=== PATIENT | male | born 1965 | race Caucasian/White ===

== ENCOUNTER 2024-09-30 14:20 | Emergency (ER) | payer BC, SELFPAY ==
[2024-09-30 14:24] VITALS: BP 165/100
[2024-09-30 14:32] LABS: Glucose - Point of Care 297 mg/dl (70-99)
[2024-09-30 15:17] VITALS: BP 162/121
[2024-09-30 15:35] LABS: Hematocrit 46.8 % (39.0-52.0); Hemoglobin 16.6 g/dL (13.0-18.0); Mean Corp Hgb Conc. 35.5 g/dL (33.0-37.0); Mean Corpuscular Volume 92.1 fL (80.0-94.0); Nucleated Red Blood Cells % 0 % (-); Platelet Count 173 10^3/uL (130-400); Red Cell Dist. Width 12.2 % (11.5-14.5)
[2024-09-30 15:54] LABS: ALT (SGPT) 41 U/L (0-50); AST (SGOT) 31 U/L (17-59); Albumin 5.1 g/dl (3.5-5.0); Alkaline Phosphatase 87 U/L (38-126); Blood Urea Nitrogen 15 mg/dl (9-20); Calcium 9.8 mg/dl (8.4-10.2); Carbon Dioxide 24 mmol/L (22-30); Chloride 102 mmol/L (98-107); Glucose 286 mg/dl (70-99); Potassium 4.1 mmol/L (3.5-5.1); Sodium 139 mmol/L (135-145); Total Protein 7.6 g/dl (6.3-8.2); eGFR > 60.00
--- NOTE | 2024-09-30 16:11 | ED.GENMED ---
History of Present Illness
General
Chief Complaint: Heart Rate Problem
Source: patient and family
Exam Limitations: clinical condition (aphasia)
Time Seen by Provider: 09/30/24 14:38
History of Present Illness
History of Present Illness:
Note:
CHIEF COMPLAINT(S)
Difficulty communicating and side pain.
HISTORY OF PRESENT ILLNESS
The patient is a 59-year-old male who presents with difficulty communicating and side pain. He initially denied having any heart issues or pain but pointed to his side when asked where he was experiencing discomfort. Upon further questioning, he
seemed to deny having any pain. He is markedly aphasic, making it very difficult to understand his intentions or symptoms. The patient has not reported any specific injury to his side. He exhibits some confusion and difficulty articulating thoughts.
ADDITIONAL HISTORY OBTAINED FROM SOURCES OTHER THAN THE PATIENT
The patients daughter was mentioned as a family member with whom he resides. There was no additional information provided directly by her during the encounter, but staff attempted to verify contact details.
PHYSICAL EXAM
- All senses are intact with no apparent deficits noted.
- Patient is awake and alert.
- Gait is normal.
- No respiratory distress observed.
- No focal neurological deficits detected.
- Heart is regular at a rate of 101 beats per minute.
- Abdomen is soft and not distended.
- Trapezius muscles are intact.
- Nursing notes reviewed and vital signs reviewed.
SOCIAL DETERMINANTS AFFECTING HEALTH
The patients communication is significantly impaired, making it challenging to understand his condition or history fully.
PROBLEM LIST
- Acute: Aphasia, side pain
- Chronic: Difficulty in effective communication
DIFFERENTIAL DIAGNOSIS
The Differential Diagnosis includes, in no particular order and is not limited to:
1. Aphasia
2. Transient ischemic attack
3. Stroke
4. Head injury
5. Anxiety or stress-related disorder
6. Seizure activity
7. Cardiovascular event
8. Neurological disorder
9. Language disorder or delay
10. Adverse reaction to medication or substance
CARE-UPDATE
09/30/24 - 15:13
Patients , Maddi, reports recurrent instances of the patient leaving home without informing anyone, frequently using a scooter despite not holding a license and traveling to various hospitals. The patient is non-compliant with medication regimen
and consistently disregards medical advice and follow-up appointments, showing stubborn behavior. He is aphasic at baseline but responds better to written communication. Plan to attempt communication through written notes and proceed to bedside
assessment.
EKG
My independent EKG interpretation is:
- Normal sinus rhythm
- Heart rate: 103 bpm
- [place]: Normal
- No acute ischemic changes
- Non-specific ST-T changes noted
- Intervals: Otherwise normal
Disposition:
SUMMARY OF ENCOUNTER
A 59-year-old male with a history of stroke was brought to the emergency department after being found wandering around the hospital. The patient exhibits significant aphasia, which is reportedly at his baseline. The patients son reported that his
father often presents this way, having previously been admitted to [facility] under similar circumstances. The patient is non-compliant with medications and dietary advice, sometimes consuming unhealthy foods like Snickers bars for dinner. He does
not follow up with primary care physicians and tends to disregard medical advice, such as not taking his medications or going to therapy for aphasia. Despite agreeing to take medications, the family indicates this agreement is often not followed
through. The patients son and express challenges in managing him at home due to his non-compliance.
PLAN
Written instructions regarding medication adherence and medical follow-up were provided to the patient. The family was informed of the importance of adherence to prescribed medications and attending follow-up therapies to manage the patients aphasia
and overall health.
PATIENT EDUCATION AND COUNSELING
The patient and his son were educated on the risks associated with medication non-compliance, poor diet choices, and irregular follow-up with healthcare providers. They were advised about the potential progression of his condition without
appropriate medical management. Instructions were handwritten for the patient to facilitate better understanding.
FOLLOW-UP INSTRUCTIONS
The patients son was given the discharge instructions along with the patient. They were advised to ensure regular follow-up with primary care providers to manage the patients health conditions more effectively.
MEDICAL DECISION MAKING
-Complexity of Data Reviewed: Chronic conditions affecting care such as history of stroke. Differential diagnosis includes aphasia, transient ischemic attack, stroke, head injury, anxiety or stress-related disorder, seizure activity, cardiovascular
event, neurological disorder, language disorder or delay, and adverse reaction to medication or substance.
-Data:
Category 1: None.
Category 2: Clinical information was obtained from the patients son, who was present at bedside.
Category 3: None.
-Risk: Care significantly affected by Social Determinants of Health due to the patients impaired communication skills and non-compliance with medical advice.
DIAGNOSIS
- Aphasia, unspecified (ICD-10: R47.01)
- Non-compliance with medical treatment (ICD-10: Z91.14)
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
Phy Exam
Physical Exam
Physical Exam:
.
Course
Orders/Labs/Results
Orders:
Orders
09/30/24
Electrocardiogram (*1) Stat
Comment: DONE EMR
09/30/24 14:32
Electrocardiogram (*1) Urgent
Reason for Study: Chest Pain
09/30/24 14:33
EKG- Treatment ONCE
09/30/24 15:26
CMP [Comprehensive Metabolic Panel] Urgent
Complete Blood Count/With Diff Urgent
Abnormal Lab Results
09/30/24 09/30/24
14:31 15:26
MCH 32.7 H pg
(27.0-31.0)
Glucose 286 H mg/dl
(70-99)
Albumin 5.1 H g/dl
(3.5-5.0)
POC Glucose 297 H mg/dl
(70-99)
09/30/24 15:26
09/30/24 15:26
Vital Signs
Initial and Last Documented VS:
Initial Vital Signs
Pulse Resp BP Pulse Ox
111 18 165/100 99
09/30/24 14:24 09/30/24 14:24 09/30/24 14:24 09/30/24 14:24
Last Documented Vital Signs
Temp Pulse Resp BP Pulse Ox
98.3 F 102 12 162/121 96
09/30/24 14:33 09/30/24 16:00 09/30/24 16:15 09/30/24 15:17 09/30/24 16:15
*Pulse Oximetry
SaO2: 98
Oxygen Mode of Delivery: Room air
Patient hypoxic: no
*Critical Care Note
Total Time (30-74mins, 75-104mins- exclusive of procedures): Not Applicable
ED Attending Note
-
Portions of this chart may have been created with voice recognition software.� Occasional wrong word or��sound alike� substitutions may have occurred due to the inherent limitations of voice recognition software.
Discharge Plan
Departure
Patient Disposition: Home (Routine Discharge)
Date of Disposition: 09/30/24
Time of Disposition: 16:11
Patient with high blood pressure during this ER visit?: Yes
Discharge Problem:
Aphasia, Acute hyperglycemia
Instructions: High blood sugar in adults - ED discharge instructions, BLOOD PRESSURE
Prescriptions:
No Action
aspirin 81 MG tablet,chewable
81 mg PO DAILY 30 Days 0RF
atorvastatin 80 MG tablet
80 mg PO HS 30 Days 0RF
metoprolol tartrate 12.5 MG tablet
12.5 mg PO Q12 30 Days 0RF
acetaminophen 325 MG tablet
650 mg PO Q6HPRN PRN (Reason: pain) 0RF
Activity Restrictions/Additional Instructions:
Your blood pressure was elevated while in the Emergency Department, please have your doctor re-evaluate it in the next 48 hours as untreated hypertension may lead to serious complications.
Your blood sugar was high today. Please see your doctor in the next 3 days for follow-up and reevaluation
Please follow-up with your doctor and it is important that you take your medications daily. Return immediately for chest pain, shortness of breath, vomiting or any other concerns.
DO NOT DRIVE OR OPERATE MACHINERY OR MOTORCYCLES!!
Interventions
Interventions:
*Risk Screen - Suicide Last Done: 09/30/24 14:24
*General Assessment Last Done: 09/30/24 14:24
*Neglect/Abuse Screening Last Done: 09/30/24 14:24
*ED- Fall Risk Assessment Last Done: 09/30/24 15:20
*ED COVID-19 Vaccine History Last Done: 09/30/24 15:20
*Nursing Disposition Last Done: 09/30/24 16:41
ED- Cardiac Assessment Last Done: 09/30/24 15:20
ED- Pulmonary Assessment Last Done: 09/30/24 15:20
Discharge Date and Time
Discharge Date/Time: 09/30/24 16:41
Print Language: PERSIAN
== END 2024-09-30 16:41 | disposition home or self-care (01) ==
LOC: EMR 14:20
PROVIDERS: Emergency Medicine; EMERGENCY PHYSICIAN Emergency Medicine
DX: R47.01 Aphasia (principal); R73.9 Hyperglycemia, unspecified; Z86.73 Personal history of transient ischemic attack (TIA), and cerebral infarction without residual deficits; Z91.199 Patient's noncompliance with other medical treatment and regimen due to unspecified reason
CPT/HCPCS: 99284; 80053; 82962; 85025; 93005